=== PATIENT | female | born 1945 | race Caucasian/White ===

== ENCOUNTER 2024-07-06 11:06 | Outpatient (OUT) | payer MEDICARE, SELFPAY ==
--- NOTE | 2024-07-06 10:45 | NM_ITS ---
Patient Name: MERCY TURNER MR#: [id number] : 1945 Exam Date: 07/06/2024 Ordering Doctor: ILA GERMAIN CNP RADIOLOGY REPORT PROCEDURE: NM DYLLAN PERF SPECT REST STR COMPARISON: None. INDICATIONS: FATIGUE, ANGINA TECHNIQUE: Exam Description: Stress/Rest one day protocol gated SPECT Rest Imagin.9 mCi Tc-99m Cardiolite IV on 07/06/2024 Stress Imaging 30.3 mCi Tc-99m Cardiolite IV on 07/06/2024 Exercise Protocol: 0.4 mg Lexiscan given IV Heart Rate (bpm): Rest: 59 Max: 85 PMHR: 60 Blood Pressure: Rest: 148/68 Max: 148/68 Symptoms: Rest and peak stress ECG findings were pending, and the exercise portion of the study was pending per attending physician [facility]. For more details, please see separate cardiac stress test report. FINDINGS: QUALITY OF STUDY: Good PERFUSION DEFECT: None LOCATION: N/A SIZE: N/A SEVERITY: N/A TYPE: N/A WALL MOTION: Normal wall motion LV SIZE: 69 mL. TID / TCD: 0.9 LVEF: Calculated EF 66%. SUMMARY: Myocardial perfusion imaging study is normal CONCLUSION: 1. Myocardial perfusion is normal 2. Global left ventricular systolic function is normal 3. No evidence of transient ischemic dilatation Dictated by: Yamel Dallas M.D. on 07/06/2024 at 14:27 Approved by: Yamel Dallas M.D. on 07/06/2024 at 14:29
[2024-07-06 10:48] LABS: Basophils Absolute Auto 0.1 10^3/uL (0.0-0.1); Basophils Percent Auto 1.3 % (0.2-2.0); Eosinophils Absolute Auto 0.4 10^3/uL (0.0-0.7); Eosinophils Percent Auto 6.4 % (0.9-7.0); Hematocrit 36.9 % (36.0-48.0); Hemoglobin 11.8 g/dL (12.0-16.0); Immature Granulocytes Abs Auto 0.01 10^3/uL (0.00-0.03); Immature Granulocytes Pct Auto 0.2 % (0.0-0.5); Mean Corpuscular Hemoglobin 28.6 pg (26.7-34.0); Mean Corpuscular Volume 89.3 fL (81.0-99.0); Mean Platelet Volume 11.8 fL (9.5-13.5); Monocytes Absolute Auto 0.4 10^3/uL (0.3-0.8); Neutrophils Absolute Auto 3.6 10^3/uL (1.4-6.5); Neutrophils Percent Auto 66.1 % (43.0-75.0); Platelet Count 150 10^3/uL (150-450); Red Blood Count 4.13 10^6/uL (4.20-5.40); Red Cell Distribution Width 14.8 % (11.0-15.0); White Blood Count 5.5 10^3/uL (4.0-11.0)
[2024-07-06 10:57] LABS: Estimated Average Glucose 140 mg/dL; Glycohemoglobin A1C 6.5 % (4.5-6.2)
[2024-07-06 11:33] LABS: Alanine Aminotransferase 23 U/L (14-59); Albumin Globulin Ratio 1.1; Albumin Level 3.5 g/dL (3.4-5.0); Alkaline Phosphatase 106 U/L (46-116); Aspartate Amino Transferase 22 U/L (15-37); BUN Creatinine Ratio 24.6; Bilirubin Total 0.5 mg/dL (0.2-1.0); Calcium 9.1 mg/dL (8.5-10.1); Carbon Dioxide 30.1 mmol/L (21.0-32.0); Chloride 105 mmol/L (98-107); Chol HDL Ratio 3.9; Cholesterol 173 mg/dL (<=200); Estimated GFR (African America >60 (>=60 mL/min/1.73m^2); Estimated GFR (Non-African Ame >60 (>=60 mL/min/1.73m^2); Free T3 2.59 pg/mL (2.18-3.98); Globulin 3.1 g/dL; Glucose 125 mg/dL (74-106); HDL Cholesterol 44 mg/dL (40-60); LDL Cholesterol Calculated 107.2 mg/dL; Potassium 4.1 mmol/L (3.5-5.1); Sodium 140 mmol/L (136-145); Thyroid Stimulating Hormone 1.722 uIU/mL (0.358-3.740); Total Protein 6.6 g/dL (6.4-8.2); Triglycerides 109 mg/dL (<=150); VLDL CHOLESTEROL 21.8 mg/dL
[2024-07-06] MEDS: REGADENOSON 0.4 MG/5 ML SYRINGE IV (12:26)
--- NOTE | 2024-07-06 12:26 | PC.NURSE ---
Nursing Note Cardiac Stress Test Reviewed: Medication, allergies and patient history reviewed. Stress Test: [ x] Patient tolerated stress test well. [ ] Patient unable to tolerate walking on treadmill. Switched to Lexiscan stress test. [x ] No chest pain noted per patient [ ] Chest pain that resolved prior to leaving stress lab. [ x] No dyspnea noted. [ ] Dyspnea that resolved prior to leaving stress lab. [ x] Patient left stress lab asymptomatic and hemodynamically stable. [ ] Patient taken to the Emergency Room due to non-resolving symptoms following stress test. [ ] Patient achieved target heart rate. [ ] Patient unable to achieve target heart rate. [ ] Aminophylline administered as reversal agent to Lexiscan (Regadenoson). [ ] Nitro administered. Nursing Comments:Lexiscan test done. Tolerated well no symptoms per pt. Pt ambulated to cafeteria for lunch prior to second set of images.
[2024-07-07 03:11] LABS: Insulin 8.5 uIU/mL (2.6-24.9); Vitamin B12 422 pg/mL (232-1245)
--- NOTE | 2024-07-08 18:42 | PM.STRESS ---
Stress Test Stress Test Requesting physician: ILA GERMAIN Procedure: This was a Lexiscan stress test with myocardial perfusion imaging performed at the [facility] on 07/06/2024. Intravenous line was secured. The patient was attached to electrocardiographic monitoring. Baseline vital signs and ECG were obtained. Lexiscan 0.4 mg was administered intravenously followed by administration of Cardiolite. The patient then went on to obtain myocardial perfusion imaging. Resting heart rate was 59 bpm and peak heart rate was 85 bpm. Resting blood pressure was 148/68, peak blood pressure was 148/68. General Information: Reason for Stress Test: Shortness of breath, fatigue. Cardiac History and Risk Factors: Myocardial infarction, diabetes. Resting 12 - Lead Electrocardiogram: Sinus rhythm with premature atrial complexes, right bundle branch block, left anterior fascicular block, bifascicular block, possible inferior infarct age undetermined, anterior infarct age undetermined. Stress Test: Protocol: Pharmacologic stress Lexiscan. Exercise Capacity: Unable to assess. Blood Pressure Response: Resting hypertension, normal response. Rhythm: Sinus with occasional PVCs. ST - Response: Nonischemic. Patient Response: No symptoms. Interpretation: 1. No evidence of ischemic ST changes seen following infusion of Lexiscan. 2. Myocardial perfusion images will be reported separately.
== END 2024-07-06 11:07 | disposition home or self-care (01) ==
LOC: NM 11:06
PROVIDERS: PCP Nurse Practitioner Family; Visit Provider Nurse Practitioner Family
DX: R53.83 Other fatigue (principal); E78.5 Hyperlipidemia, unspecified; R73.09 Other abnormal glucose; D64.9 Anemia, unspecified; E55.9 Vitamin D deficiency, unspecified; R06.02 Shortness of breath
CPT/HCPCS: 36415; 78452; 80053; 80061; 82306; 82607; 83036; 83525; 83540; 84436; 84443; 84481; 85025; 93017; A9500; J2785